=== PATIENT | male | born 1975 | race Hispanic/Latino ===

== ENCOUNTER 2016-07-06 02:43 | Emergency (ER) | payer OTHER ==
[~2016-07-06] VITALS: Ht 175.3 cm; Wt 81.8 kg
[2016-07-06 02:47] VITALS: BP 131/92; PULSE 74; RESP 16; O2SAT 100
--- NOTE | 2016-07-06 03:22 | ED.REPORT ---
HPI- Male Date of Service July 06, 2016 ED Provider: Reese Giles MD Pt is a 41 y.o. male who presents to the ED c/o penile swelling onset 2 days ago. He reports associated pain. Pt denies injury, dysuria, and testicular pain or swelling. Nursing Notes Stated Complaint: GROIN PAIN Chief Complaint: Male Abdominal Pain Nursing Notes Reviewed: Yes Allergies: Coded Allergies: No Known Allergies (Unverified , 07/06/16) General Time Seen by MD: 03:21 Chief Complaint Other (Penile swelling) Hx Obtained From: Patient Arrived By: Walk-in Onset Occurred: 2 days ago Symptom Duration: Since onset Location: : Penis Quality: Painful Severity: Current: Mild Severity: Maximum: Severe Recent Healthcare: No recent doctor visit, No recent hospitalization Similar Sx Previous: No Past Medical History Past Medical History None reported Past Surgical History None reported Ambulatory Status Independent Review of Systems Penile swelling Penile pain Male: Denies Dysuria, Denies Testicular pain, Denies Testicular swelling Complete sys rev & neg: except as marked. Physical Exam Initial Vital Signs Vital Signs (First) Date Time Temp Pulse Resp B/P Pulse Ox O2 Delivery O2 Flow Rate FiO2 07/06/16 02:47 35.9 74 16 131/92 100 Room Air Initial VS: Reviewed, Vital signs abnormal Head / Eyes: Atraumatic, Normocephalic Respiratory: Breath sounds normal, No respiratory distress Cardiovascular: Regular rate & rhythm, Intact distal pulses Extremities: Vascular intact, Neuro intact Skin: Warm, Dry, No cyanosis Neurologic: Alert, Oriented, Nonfocal Psychiatric: Mood/affect normal, Behavior normal, Normal thought content Male Genitourinary: No penile discharge, Testes NL Uncircumcised Slightly tender indurated vein on dorsum of penis with surrounding swelling of shaft of penis General/Constitutional: Awake, Alert, Well appearing, Well developed, Well hydrated, Well nourished, Not toxic appearing Abdomen: Atraumatic, Soft, Non-tender, No distention Re-Eval/Medical Decision Med Decision/Clinical Course 41-year-old male who presents with a thin linear mass along the dorsum of his penis. It is mildly tender and there is some swelling of the distal penis. There is also a small amount of erythema, not usually expected with this problem. Examination is consistent with thrombosis of the dorsal vein of the penis. Case was discussed with Dr. Sandoval. This is a self-limiting condition treated with nonsteroidal anti-inflammatory medicines in combination with aspirin and warm compresses. Please see discharge instruction. Ultrasound can confirm the diagnosis but clinical evaluation is sufficiently accurate that is felt that ultrasound is not needed. He will follow-up with Dr. Haider. Source of Hx: Old records Re-Evaluation/Progress #1: Time of Eval: 04:14 Re-Evaluation/Progress Note: Pt rechecked. Notified pt that we are awaiting a urology consult. Re-Evaluation/Progress #2: Time of Eval: 04:42 Re-Evaluation/Progress Note: Pt rechecked. Discussed consult with Dr. Sandoval and plan for discharge. Pt understands and agrees with plan. Consultation #1: Referral / Consult Name: Hardeep Sandoval MD Consulted With: Urology Call Returned at: 04:15 Note: Discussed pt condition. Will return call shortly. Consultation #2: Referral / Consult Name: Hardeep Sandoval MD Consulted With: Urology Call Returned at: 04:40 Note: Dr. Sandoval returned call. Reccommends treatment with abstinence, aspirin 325 a day, ibuprofen, and if erythema he can use abx like Septra. States US is not necessary Counseled Regarding: Diagnosis, Lab results, Need for follow-up, When/why to return to ED Discharge & Departure Impression: Primary Impression: Thrombosis of superficial vein of penis Disposition: Home Discharge Condition All VS Reviewed: Yes Condition: Improved Additional Instructions: A blood clot in this vein is uncommon. There is no specific treatment. The symptoms usually resolve in 2-4 weeks. Avoid sexual activity. Ibuprofen 600 mg 3 or 4 times daily, to be purchased [id number]. Trimethoprim sulfamethoxazole DS 1 by mouth twice a day for 10 days, #20 dispensed. Aspirin 325 mg by mouth daily. Warm compresses several times daily. Follow-up with Dr. Sandoval in one week. Referrals: [facility] (PCP) [facility] Hamida Attestation Portions of this note were transcribed by Talita Valdes. I, Dr. Giles personally performed the history, physical exam and medical decision-making; I reviewed and confirmed the accuracy of the information in the transcribed note. Signed by: Hamida Mohan, 07/06/16 and 0882 copies to: [facility] Reese Giles MD July 06, 2016 03:22 TALITA VALDES July 06, 2016 03:28
[2016-07-06 05:38] VITALS: BP 131/92; PULSE 74; RESP 16; O2SAT 100
[2016-07-06] MEDS ORDERED: _Trimethoprim-Sulfa 160/800 mg Tablet PO SCH (08:30)
== END 2016-07-06 05:39 | disposition home or self-care (01) ==
LOC: SED 02:43
DX: N48.81 Thrombosis of superficial vein of penis (principal)